=== PATIENT | female | born 1950 | race Caucasian/White ===

== ENCOUNTER → 2017-10-02 | Outpatient (CLI) | payer MEDICARE, BC | END | disposition home or self-care (01) | LOC: CFH 09:43 | PROVIDERS: ATTEND Internal Medicine Hematology & Oncology | DX: Z12.31 Encounter for screening mammogram for malignant neoplasm of breast (principal); C50.411 Malignant neoplasm of upper-outer quadrant of right female breast | CPT/HCPCS: 77063; 77067 ==

== ENCOUNTER → 2018-10-08 | Outpatient (CLI) | payer MEDICARE, BC | END | disposition home or self-care (01) | LOC: CFH 14:17 | PROVIDERS: ATTEND Family Medicine | DX: Z12.31 Encounter for screening mammogram for malignant neoplasm of breast (principal); Z85.3 Personal history of malignant neoplasm of breast | CPT/HCPCS: 77067 ==

== ENCOUNTER 2018-10-29 12:13 | Outpatient (CLI) | payer MEDICARE, BC | END 2018-10-29 23:59 | disposition home or self-care (01) | LOC: CFH 12:13 | PROVIDERS: ATTEND Internal Medicine Hematology & Oncology | DX: R92.2 Inconclusive mammogram (principal); Z85.3 Personal history of malignant neoplasm of breast | CPT/HCPCS: 76377; 76641; 76642 ==

== ENCOUNTER 2019-06-16 18:04 | Inpatient (IN) | payer MEDICARE, BC ==
[~2019-06-16] VITALS: Ht 162.6 cm; Wt 62.5 kg
[2019-06-16 19:56] LABS: BASOPHILS # (AUTO) 0.01 x10^3/uL (0-0.1); BASOPHILS % (AUTO) 0 % (0-1); EOSINOPHILS % (AUTO) 0 % (1-7); LYMPHOCYTES # (AUTO) 0.98 x10^3/uL (1-3.4); LYMPHOCYTES % (AUTO) 8 % (22-44); MD NO; MEAN CORPUSCULAR HEMOGLOBIN 30.9 pg (27.0-34.8); MEAN CORPUSCULAR HGB CONC 33.5 g/dL (32.4-35.8); MEAN CORPUSCULAR VOLUME 92.3 fL (80-100); MEAN PLATELET VOLUME 8.8 fL (7.4-10.4); MONOCYTES # (AUTO) 0.24 x10^3/uL (0.2-0.8); MONOCYTES % (AUTO) 2 % (2-9); NEUTROPHILS # (AUTO) 10.41 x10^3/uL (1.8-6.8); NEUTROPHILS % (AUTO) 89 % (42-75); PLATELET COUNT 207 x10^3/uL (130-400); RED BLOOD COUNT 4.63 x10^6/uL (3.82-5.3); RED CELL DISTRIBUTION WIDTH 13.2 % (9.6-15.2)
[2019-06-16 20:06] LABS: ALANINE AMINOTRANSFERASE 33 U/L (12-78); ALBUMIN 3.8 g/dL (3.4-5.0); ANION GAP 9 mmol/L (5-15); CALCIUM 8.8 mg/dL (8.5-10.1); CHLORIDE 106 mmol/L (98-107); CREATININE 1.45 mg/dL (0.55-1.02)
[2019-06-16 20:08] LABS: ALKALINE PHOSPHATASE 79 U/L (45-117); BILIRUBIN,TOTAL 0.4 mg/dL (0.2-1.0); TOTAL PROTEIN 7.5 g/dL (6.4-8.2)
--- NOTE | 2019-06-16 20:39 | NUR ---
PT TO US VIA VASILIY.
[2019-06-16] MEDS ORDERED: AMPICILLIN/SULBACTAM 3 GM in SODIUM CHLORIDE 0.9% 100 ML IV SCH (20:40)
[2019-06-16] MEDS ORDERED: ONDANSETRON 2MG/ML, 2ML ONE (20:51)
[2019-06-16] MEDS ORDERED: HYDROmorphone 1 MG/ML, 1ML VIAL ONE (20:51)
[2019-06-16] MEDS ORDERED: HYDROmorphone 1 MG/ML, 1ML INJ IVPush PRN (21:00)
[2019-06-16] MEDS ORDERED: ONDANSETRON 2MG/ML, 2ML IVPush ONE (21:00)
[2019-06-16 22:59] VITALS: BP 109/60
[2019-06-16] MEDS: SODIUM CHLORIDE 0.9% 1,000 ML IV SCH (23:54)
[2019-06-17] MEDS ORDERED: morphine SULFATE 10 MG/ML, 1ML IVPush PRN
[2019-06-17] MEDS ORDERED: ACETAMINOPHEN 325 MG TABLET PO PRN
[2019-06-17] MEDS ORDERED: HYDROcodone/APAP 5/325 TABLET PO PRN
[2019-06-17] MEDS ORDERED: ONDANSETRON ODT 4 MG PO PRN
[2019-06-17] MEDS ORDERED: BISACODYL 10 MG SUPP PR PRN
[2019-06-17] MEDS ORDERED: DOCUSATE 100 MG CAPSULE PO PRN
[2019-06-17] MEDS: CLINDAMYCIN PMX 600MG/50ML 50 ML IV SCH ×4 (00:39→23:51)
[2019-06-17 00:58] VITALS: BP 101/64
[2019-06-17 01:22] LABS: ANION GAP 6 mmol/L (5-15); CALCIUM 8.1 mg/dL (8.5-10.1); CHLORIDE 109 mmol/L (98-107)
[2019-06-17] MEDS: IBUPROFEN 600 MG TABLET PO PRN ×3 (05:06→21:14)
[2019-06-17 05:19] LABS: CHLORIDE 110 mmol/L (98-107)
[2019-06-17 05:24] LABS: ANION GAP 8 mmol/L (5-15); CALCIUM 8.2 mg/dL (8.5-10.1); CREATININE 0.92 mg/dL (0.55-1.02)
[2019-06-17 07:17] VITALS: BP 97/60
[2019-06-17] MEDS: HEPARIN 5,000 UNITS/ML, 1ML SQ SCH ×3 (08:00→16:00)
[2019-06-17] MEDS: SODIUM CHLORIDE 0.9% 1,000 ML IV SCH (08:06)
[2019-06-17 12:37] VITALS: BP 100/53
[2019-06-17 20:23] VITALS: BP 113/63
[2019-06-17] MEDS ORDERED: SODIUM CHLORIDE 0.9% 1,000 ML IV SCH (23:43)
[2019-06-18 00:16] VITALS: BP 125/68
[2019-06-18 04:43] LABS: BASOPHILS # (AUTO) 0.02 x10^3/uL (0-0.1); BASOPHILS % (AUTO) 0 % (0-1); EOSINOPHILS # (AUTO) 0.12 x10^3/uL (0-0.4); EOSINOPHILS % (AUTO) 3 % (1-7); LYMPHOCYTES # (AUTO) 1.17 x10^3/uL (1-3.4); LYMPHOCYTES % (AUTO) 28 % (22-44); MD NO; MEAN CORPUSCULAR HEMOGLOBIN 30.6 pg (27.0-34.8); MEAN CORPUSCULAR HGB CONC 32.8 g/dL (32.4-35.8); MEAN CORPUSCULAR VOLUME 93.4 fL (80-100); MEAN PLATELET VOLUME 8.7 fL (7.4-10.4); MONOCYTES # (AUTO) 0.34 x10^3/uL (0.2-0.8); MONOCYTES % (AUTO) 8 % (2-9); NEUTROPHILS % (AUTO) 60 % (42-75); PLATELET COUNT 158 x10^3/uL (130-400); RED CELL DISTRIBUTION WIDTH 12.9 % (9.6-15.2)
[2019-06-18 04:53] LABS: ANION GAP 5 mmol/L (5-15); CALCIUM 8.4 mg/dL (8.5-10.1); CHLORIDE 111 mmol/L (98-107); CREATININE 0.84 mg/dL (0.55-1.02)
[2019-06-18] MEDS: HEPARIN 5,000 UNITS/ML, 1ML SQ SCH ×2 (08:00)
[2019-06-18 08:45] VITALS: BP 129/78
[2019-06-18] MEDS: CLINDAMYCIN PMX 600MG/50ML 50 ML IV SCH (09:32)
[2019-06-18] MEDS ORDERED: SULF1TAB24 PO (09:44)
== END 2019-06-18 12:10 | disposition home or self-care (01) | DRG 602 ==
LOC: ED 22:19 → EDIP 22:23 → ED 22:24 → 4NW 22:45 → DCLOUNGE 06-18 12:00
PROVIDERS: ADMIT Family Medicine; ATTEND Family Medicine
DX: L03.113 Cellulitis of right upper limb (principal); N17.0 Acute kidney failure with tubular necrosis; I42.9 Cardiomyopathy, unspecified; E86.0 Dehydration; I89.0 Lymphedema, not elsewhere classified; L03.011 Cellulitis of right finger; M85.80 Other specified disorders of bone density and structure, unspecified site; Z85.3 Personal history of malignant neoplasm of breast; Z92.21 Personal history of antineoplastic chemotherapy; Z92.3 Personal history of irradiation; Z90.11 Acquired absence of right breast and nipple
CPT/HCPCS: 36415; 71046; 80048; 80053; 83605; 84145; 85025; 87040; 93005; 96365; 96375; G0378; J0295; J1170; J2405; J7030

== ENCOUNTER → 2020-01-17 | Outpatient (CLI) | payer MEDICARE, BC ==
[~2020-01-17] MED LIST: SULF1TAB24 PO
== END | disposition home or self-care (01) ==
LOC: CFH 13:45
PROVIDERS: ATTEND Internal Medicine Hematology & Oncology
DX: Z12.31 Encounter for screening mammogram for malignant neoplasm of breast (principal); C50.411 Malignant neoplasm of upper-outer quadrant of right female breast; Z85.3 Personal history of malignant neoplasm of breast
CPT/HCPCS: 76641; 77063; 77067

== ENCOUNTER → 2021-02-27 | Outpatient (CLI) | payer MEDICARE, BC ==
[~2021-02-27] MED LIST changes: +SULF-23 PO; -SULF1TAB24 PO
== END | disposition home or self-care (01) ==
LOC: CFH 12:15
PROVIDERS: ATTEND Family Medicine
DX: Z12.31 Encounter for screening mammogram for malignant neoplasm of breast (principal); Z12.39 Encounter for other screening for malignant neoplasm of breast; R92.8 Other abnormal and inconclusive findings on diagnostic imaging of breast; N64.59 Other signs and symptoms in breast; Z85.3 Personal history of malignant neoplasm of breast
CPT/HCPCS: 76641; 77063; 77067